=== PATIENT | female | born 1980 | race African-American/Black ===

== ENCOUNTER 2020-04-27 19:28 | Emergency (ER) | payer OTHER ==
[~2020-04-27] VITALS: Ht 167.6 cm; Wt 80.7 kg
[2020-04-27 19:32] VITALS: BP 152/104
[2020-04-27] MEDS ORDERED: LIDOCAINE 2% 1000 MG/50 ML VIAL INJ ONE (20:15)
[2020-04-27] MEDS ORDERED: ACET-1182 PO (21:12)
[2020-04-27 21:45] VITALS: BP 148/88
== END 2020-04-27 21:45 | disposition home or self-care (01) ==
LOC: MED 19:28
DX: S61.216A Laceration without foreign body of right little finger without damage to nail, initial encounter (principal); S63.206A Unspecified subluxation of right little finger, initial encounter; W22.8XXA Striking against or struck by other objects, initial encounter; Y93.89 Activity, other specified; Y92.89 Other specified places as the place of occurrence of the external cause; Y99.8 Other external cause status
CPT/HCPCS: 12001; 73130; 90471; 90715; 99283; J2001